=== PATIENT | female | born 1995 | race Two or more races ===

== ENCOUNTER 2019-03-04 15:30 | Observation (INO) | payer MEDICAID, OTHER ==
[~2019-03-04] VITALS: Ht 152.4 cm; Wt 68.0 kg
[2019-03-04] MEDS ORDERED: PREN-96 PO (16:16)
[2019-03-04] MEDS ORDERED: TERBUTALINE SULFATE 1 MG/ML 1ML VIAL SC SCH (16:45)
[2019-03-04 17:41] LABS: Basophils # (auto) 0 uL; Basophils % (auto) 0.1 % (0.0-2.0); Eosinophils # (auto) 0.1 uL; Eosinophils % (auto) 0.5 % (0.0-7.0); Hematocrit 40.5 % (36.0-46.0); Hemoglobin 13.7 g/dL (12.2-16.2); Lymphocytes % (auto) 20.2 % (10.0-50.0); Mean Corpuscular Hemoglobin 29.5 pg (28.0-32.0); Mean Corpuscular Hgb Conc. 33.9 g/dL (32.0-36.0); Monocytes # (auto) 0.7 uL; Monocytes % (auto) 7.2 % (0.0-12.0); Neutrophils # (auto) 7.1 uL; Platelet Count (auto) 251 10^3/uL (140-450); Red Blood Cells 4.66 10^6/uL (4.0-5.20); Red Cell Distribution Width 13.4 % (11.8-14.3); White Blood Cell 9.9 10^3/uL (4.4-10.8)
[2019-03-04 18:10] LABS: Albumin 2.6 g/dL (3.4-5.0); Bilirubin, Total 0.2 mg/dL (0.2-1.0); Calcium 8.5 mg/dL (8.5-10.1); Potassium 3.7 mmol/L (3.5-5.1); Total Protein 6.2 g/dL (6.4-8.2); Uric Acid 4.3 mg/dL (2.6-6.0)
== END 2019-03-04 19:18 | disposition home or self-care (01) | DRG 566 ==
LOC: LDRP 15:30
PROVIDERS: ADMIT Specialist; ATTEND Specialist
DX: O62.9 Abnormality of forces of labor, unspecified (principal); K83.1 Obstruction of bile duct; O26.613 Liver and biliary tract disorders in pregnancy, third trimester; Z3A.34 34 weeks gestation of pregnancy
CPT/HCPCS: 36415; 59025; 80053; 81002; 84550; 85025; 96372; G0378; J3105

== ENCOUNTER 2019-03-10 10:45 | Observation (INO) | payer MEDICAID ==
[~2019-03-10] VITALS: Ht 152.4 cm; Wt 72.6 kg
[~2019-03-10 10:45] MED LIST: PREN-96 PO
[2019-03-10] MEDS ORDERED: URSO300C4 PO (11:37)
[2019-03-10] MEDS ORDERED: LACTATED RINGER'S 1,000 ML IV ONE (11:50)
[2019-03-10] MEDS ORDERED: TERBUTALINE SULFATE 1 MG/ML 1ML VIAL SC ONE (12:08)
[2019-03-10] MEDS: TERBUTALINE SULFATE 1 MG/ML 1ML VIAL SC SCH ×2 (12:14→13:04)
== END 2019-03-10 14:54 | disposition home or self-care (01) | DRG 566 ==
LOC: LDRP 10:45
PROVIDERS: ADMIT Specialist; ATTEND Specialist
DX: O26.613 Liver and biliary tract disorders in pregnancy, third trimester (principal); Z3A.35 35 weeks gestation of pregnancy
CPT/HCPCS: 59025; 76805; 76818; 81002; 96372; G0378; J3105; 96361; 96365

== ENCOUNTER 2019-03-14 16:02 | Observation (INO) | payer MEDICAID ==
[~2019-03-14] VITALS: Ht 30.5 cm; Wt 0.5 kg
[~2019-03-14 16:02] MED LIST changes: +URSO300C4 PO
[2019-03-14] MEDS ORDERED: BETAMETHASONE ACET (6MG/ML) 5ML VIAL IM SCH (22:00)
== END 2019-03-14 18:51 | disposition home or self-care (01) | DRG 566 ==
LOC: LDRP 16:02
PROVIDERS: ADMIT Specialist; ATTEND Specialist
DX: O26.613 Liver and biliary tract disorders in pregnancy, third trimester (principal); K83.1 Obstruction of bile duct; O62.9 Abnormality of forces of labor, unspecified; Z3A.36 36 weeks gestation of pregnancy
CPT/HCPCS: 59025; 76818; 81002; 96372; G0378; J0702

== ENCOUNTER 2019-03-15 18:55 | Observation (INO) | payer MEDICAID ==
[~2019-03-15] VITALS: Ht 152.4 cm; Wt 68.0 kg
[2019-03-15] MEDS ORDERED: BETAMETHASONE ACET (6MG/ML) 5ML VIAL IM ONE (20:00)
== END 2019-03-15 20:47 | disposition home or self-care (01) | DRG 563 ==
LOC: LDRP 18:55
PROVIDERS: ADMIT Obstetrics & Gynecology; ATTEND Obstetrics & Gynecology
DX: O60.03 Preterm labor without delivery, third trimester (principal); O62.9 Abnormality of forces of labor, unspecified; Z3A.36 36 weeks gestation of pregnancy
CPT/HCPCS: 96372; G0378; J0702

== ENCOUNTER 2019-03-21 11:11 | Observation (INO) | payer MEDICAID | END 2019-03-21 12:00 | disposition home or self-care (01) | DRG 566 | LOC: LDRP 11:11 | PROVIDERS: ADMIT Obstetrics & Gynecology; ATTEND Obstetrics & Gynecology | DX: O36.8130 Decreased fetal movements, third trimester, not applicable or unspecified (principal); Z3A.37 37 weeks gestation of pregnancy | CPT/HCPCS: 76818; G0378 ==

== ENCOUNTER 2019-03-21 20:40 | Observation (INO) | payer MEDICAID ==
[2019-03-21 22:22] LABS: Urine Bacteria FEW /hpf (None Seen); Urine Blood 1+ /uL (Negative); Urine Specific Gravity 1.015 (1.001-1.035); Urine WBC 75 /hpf (0 - 5)
== END 2019-03-21 22:00 | disposition home or self-care (01) | DRG 566 ==
LOC: LDRP 20:40
PROVIDERS: ADMIT Obstetrics & Gynecology; ATTEND Obstetrics & Gynecology
DX: O26.613 Liver and biliary tract disorders in pregnancy, third trimester (principal); K83.1 Obstruction of bile duct; Z3A.37 37 weeks gestation of pregnancy
CPT/HCPCS: 59025; 81001; 81002; G0378

== ENCOUNTER 2019-03-23 14:30 | Inpatient (IN) | payer MEDICAID ==
[~2019-03-23] VITALS: Ht 30.5 cm; Wt 0.5 kg
[2019-03-23] MEDS ORDERED: LACTATED RINGER'S 1,000 ML IV SCH ×2 (17:44→20:44)
[2019-03-23] MEDS ORDERED: LACT. RINGERS/OXYTOCIN 20UNITS 1,000 ML IV SCH (17:44)
[2019-03-23] MEDS ORDERED: WITCH HAZEL-GLYCERIN PAD TOP PRN (17:45)
[2019-03-23] MEDS ORDERED: PHISODERM TOP SOLN 240ML BTL TOP PRN (17:45)
[2019-03-23] MEDS ORDERED: LIDOCAINE 2%HCL (LOCAL ANESTH.) INJ 20ML MDV ID ONE (17:45)
[2019-03-23] MEDS ORDERED: DERMOPLAST 60ML BOTTLE TOP PRN (17:45)
[2019-03-23] MEDS ORDERED: NALBUPHINE HCL 10 MG/1ml INJECTION IV PRN (17:45)
[2019-03-23 18:58] LABS: Basophils # (auto) 0 uL; Basophils % (auto) 0.1 % (0.0-2.0); Eosinophils # (auto) 0 uL; Eosinophils % (auto) 0.1 % (0.0-7.0); Hematocrit 41.7 % (36.0-46.0); Lymphocytes # (auto) 1.5 uL; Lymphocytes % (auto) 7.8 % (10.0-50.0); Mean Corpuscular Hemoglobin 29.9 pg (28.0-32.0); Mean Corpuscular Hgb Conc. 33.6 g/dL (32.0-36.0); Mean Corpuscular Volume 88.9 fL (80.0-100.0); Monocytes # (auto) 1.2 uL; Monocytes % (auto) 6.4 % (0.0-12.0); Neutrophils # (auto) 16.3 uL; Neutrophils % (auto) 85.6 % (37.0-80.0); Platelet Count (auto) 248 10^3/uL (140-450); Red Blood Cells 4.69 10^6/uL (4.0-5.20); Red Cell Distribution Width 14.7 % (11.8-14.3)
[2019-03-23] MEDS ORDERED: ceFAZolin 1GM/50ML 50 ML IV SCH ×2 (19:00→22:00)
[2019-03-23 19:05] LABS: INR < 0.93 (0.9-1.15); Partial Thromboplastin Time 30.5 sec (23.64-32.05)
[2019-03-23] MEDS ORDERED: TETRACAINE 1% INJ 2 ML VIAL IJ ONE (19:15)
[2019-03-23] MEDS ORDERED: GENTAMICIN SULFATE 80 MG in D5W 5% 100 ML IV ONE (19:15)
[2019-03-23] MEDS ORDERED: BUPIVACAINE/DEXTROSE MPF 0.75% 2 ML AMP IT ONE ×2 (19:17→19:20)
[2019-03-23] MEDS ORDERED: MORPHINE SULF(PF) 0.5MG/ML 10ML VIAL ONE (19:20)
[2019-03-23 19:22] LABS: Albumin 2.6 g/dL (3.4-5.0); Calcium 8.3 mg/dL (8.5-10.1); Potassium 4.2 mmol/L (3.5-5.1)
[2019-03-23 19:27] LABS: BUN/Creatinine Ratio 11.7; Bilirubin, Total 0.4 mg/dL (0.2-1.0); Total Protein 6.6 g/dL (6.4-8.2); Uric Acid 4.2 mg/dL (2.6-6.0)
[2019-03-23] MEDS ORDERED: OXYTOCIN 10 UNIT/ML 10ML VIAL IV ONE (20:33)
[2019-03-23] MEDS ORDERED: HYDROmorphone HCL 2 MG/ML VL IV PRN (20:45)
[2019-03-23] MEDS ORDERED: ONDANSETRON HCL 4 MG/2 ML VIAL IV PRN (20:45)
[2019-03-23 21:43] VITALS: BP 123/76
--- NOTE | 2019-03-23 21:45 | NUR ---
Post Op for LDRP: Received patient from [facility] via bed to room . Patient A/A/Ox4, abdominal binder and bilateral SCD's are in place, IV fluids placed on pump and infusing per order, incisional site dressing clean/dry/intact and Adkins Catheter to gravity draining clear yellow urine. Fundus firm at umbilicus with scant bleeding. Incentive Spirometer at bedside and instruction on proper use with return demonstration done by patient.
[2019-03-23 21:56] VITALS: BP 119/85
[2019-03-23 22:11] VITALS: BP 121/87
[2019-03-23 23:03] VITALS: BP 126/87
[2019-03-23 23:10] VITALS: BP 126/78
[2019-03-23] MEDS: KETOROLAC TROMETH 30 MG/ML 1ML VIAL IV SCH (23:36)
[2019-03-24] VITALS (11 sets, daily range): BP systolic 102–126; BP diastolic 53–70
[2019-03-24] MEDS ORDERED: diphenhdrAMINE HCL 50 MG/1 ML VL IV PRN (00:45)
[2019-03-24] MEDS ORDERED: ceFAZolin 1GM/50ML 50 ML IV SCH (03:00)
[2019-03-24] MEDS: KETOROLAC TROMETH 30 MG/ML 1ML VIAL IV SCH ×2 (05:33→12:14)
[2019-03-24 07:04] LABS: Basophils # (auto) 0 uL; Eosinophils # (auto) 0 uL; Eosinophils % (auto) 0.1 % (0.0-7.0); Hematocrit 38.4 % (36.0-46.0); Lymphocytes # (auto) 1.4 uL; Lymphocytes % (auto) 8.5 % (10.0-50.0); Mean Corpuscular Hemoglobin 29.9 pg (28.0-32.0); Mean Corpuscular Hgb Conc. 33.9 g/dL (32.0-36.0); Mean Corpuscular Volume 88.2 fL (80.0-100.0); Neutrophils # (auto) 14.2 uL; Neutrophils % (auto) 85.4 % (37.0-80.0); Platelet Count (auto) 196 10^3/uL (140-450); Red Blood Cells 4.35 10^6/uL (4.0-5.20); Red Cell Distribution Width 14.8 % (11.8-14.3); White Blood Cell 16.7 10^3/uL (4.4-10.8)
--- NOTE | 2019-03-24 09:00 | NUR ---
SBAR given to Dr Duran. Made rounds with RN Dr Duran. Received orders to dc rees if urine output is WNL.
--- NOTE | 2019-03-24 09:45 | NUR ---
Rees catheter dc'd Order to discontinue rees catheter. Rees dc'd with clean technique following deflation of balloon. Patient tolerated well with no complaints of pain. Continue care.
--- NOTE | 2019-03-24 10:00 | NUR ---
Ambulation: Patient OOB with standby assistance by RN. Patient ambulated to bathroom with steady gait. Patient able to void without difficulty. Pericare teaching provided with returned demonstration by patient. Clean gown provided and bed linen changed. All personal belongings transfered in to room 8A. Pt ambulated with steady gait, standby assist with RN. Tolerated well. Placed in bed. Vital signs taken. Tolerated well. No distress noted. Pain 0/10. Dressing on lower abdomen removed as per order. No redness, no edema, no ecchimosis, no drainage, edges well approximated with [address] Small amount of dried blood on pad upon removal. No active draining noted. Abdominal binder in place.
[2019-03-24] MEDS: ceFAZolin 1GM/50ML 50 ML IV SCH ×2 (13:32→22:11)
[2019-03-24] MEDS ORDERED: HYDROcodone-ACET 5/325MG TAB PO PRN (17:00)
[2019-03-24] MEDS: IBUPROFEN 800 MG TAB PO PRN (17:45)
--- NOTE | 2019-03-24 18:09 | NUR ---
TEMPERATURE TAKEN AT 99.8, PT OFFERED COOLING MEASURE. PT STATES SHE IS FEELING FINE FOR OTTO
[2019-03-24] MEDS: SIMETHICONE 80 MG CHEWABLE TABLET PO PRN (19:13)
[2019-03-24] MEDS: DOCUSATE SOD 100 MG CAP PO SCH (19:13)
[2019-03-24] MEDS: HYDROcodone-ACET 5/325MG TAB PO PRN (23:19)
[2019-03-25 02:55] VITALS: BP 104/59
[2019-03-25] MEDS: SIMETHICONE 80 MG CHEWABLE TABLET PO PRN (05:24)
[2019-03-25] MEDS: HYDROcodone-ACET 5/325MG TAB PO PRN ×3 (05:24→21:38)
--- NOTE | 2019-03-25 06:10 | NUR ---
Report received from Girma Barba RN on stable pt. Assumed care. Addendum: 03/25/19 at 0626 by Candy Dash RN Amended: Links added.
[2019-03-25 07:00] VITALS: BP 119/73
--- NOTE | 2019-03-25 07:00 | NUR ---
lower abdominal incision open to air, well approximated with jose intact. No redness, drainage, or bleeding noted. Abdominal binder in place. Incentive spirometer at bedside, pt educated on use and return demonstration provided by pt. Lungs clear bilaterally. Addendum: 03/25/19 at 1111 by Candy Dash RN Amended: Links added.
[2019-03-25] MEDS: DOCUSATE SOD 100 MG CAP PO SCH ×2 (10:24→21:38)
[2019-03-25] MEDS: IBUPROFEN 800 MG TAB PO PRN ×2 (10:24→20:04)
[2019-03-25 11:13] VITALS: BP 115/71
[2019-03-25 15:18] VITALS: BP 133/80
--- NOTE | 2019-03-25 18:25 | NUR ---
Report given to Emiliano Parson RN on stable pt. Relinquished care. Addendum: 03/25/19 at 1844 by aCndy Dash RN Amended: Links added.
[2019-03-25 19:20] VITALS: BP 126/85
[2019-03-25] MEDS ORDERED: BISACODYL 10 MG RECT SUPP PR PRN (20:00)
--- NOTE | 2019-03-25 20:14 | NUR ---
Patient requesting to shower. CNM called, orders received to DC IV and patient okay to shower.
--- NOTE | 2019-03-25 20:35 | NUR ---
IV removal IV DC'd with sterile technique, catheter fully intact. Pressure dressing applied to site. Patient tolerated procedure well.
[2019-03-25 22:52] VITALS: BP 117/79
[2019-03-26] MEDS: HYDROcodone-ACET 5/325MG TAB PO PRN (02:45)
[2019-03-26 02:47] VITALS: BP 123/72
[2019-03-26 04:06] LABS: RPR Non Reactive (Non Reactive); Rubella Antibodies, IgG <0.90 index (Immune >0.99)
[2019-03-26] MEDS ORDERED: MEASLES, MUMPS & RUBELLA VAC(MMRII) 0.5ML SC ONE (04:45)
[2019-03-26] MEDS: IBUPROFEN 800 MG TAB PO PRN (05:00)
--- NOTE | 2019-03-26 06:00 | NUR ---
staple removal done by doris KENNEDY at bedside
[2019-03-26 06:30] VITALS: BP 119/66
--- NOTE | 2019-03-26 07:09 | NUR ---
Discharge: Discharge instructions given as ordered. Pt encouraged to follow up with MATERIAL MANAGER as instructed. All questions and concerns addressed. Patient verbalized understanding. Medication reconciliation completed and copy given to patient. All required/requested vaccines given and copies of vaccinations given to patient. Patient encouraged to prepare to depart unit.
--- NOTE | 2019-03-26 09:00 | NUR ---
Discharge: Patient taken to vehicle via ambulation refusing wheelchair with all personal belongings, accompanied by staff and family member. No distress noted at time of departure, no adverse changes in status since initial assessment.
== END 2019-03-26 09:00 | disposition home or self-care (01) | DRG 540 ==
LOC: LDRP 14:30 → OBSVTOIN 17:20 → LDRP 17:21
PROVIDERS: ADMIT Specialist; ATTEND Specialist
PROC: 10D00Z1 Extraction of Products of Conception, Low, Open Approach (ICD-10-PCS; principal; 2019-03-23 19:40)
DX: O42.92 Full-term premature rupture of membranes, unspecified as to length of time between rupture and onset of labor (principal); K83.1 Obstruction of bile duct; O41.1230 Chorioamnionitis, third trimester, not applicable or unspecified; O26.62 Liver and biliary tract disorders in childbirth; Z37.0 Single live birth; Z3A.37 37 weeks gestation of pregnancy
CPT/HCPCS: 36415; 59025; 62282; 76818; 80053; 81002; 84112; 84550; 85025; 85610; 85730; 86592; 86703; 86762; 86850; 86900; 86901; 87340; 94760; 96361; 96366; 96372; G0378; J0690; J1885; J2590; J7060